=== PATIENT | male | born 1950 | race Caucasian/White ===

== ENCOUNTER 2021-11-09 15:05 | Emergency (ER) | payer MEDICARE ==
[2021-11-09] VITALS (14 sets, daily range): BP systolic 125–180; BP diastolic 70–112
[~2021-11-09] VITALS: Ht 165.1 cm; Wt 63.6 kg
[2021-11-09 16:09] LABS: HEMATOCRIT 43.8 % (39.0-50.0); HEMOGLOBIN 14.2 g/dl (14.0-18.0); IMMATURE GRANULOCYTES 0.7 % (0.0-5.0); MEAN CELL VOLUME 94.8 fL CALC (80.0-100.0); MEAN CORPUSCULAR HGB 30.7 pG CALC (26.0-32.0); MEAN CORPUSCULAR HGB CONC 32.4 g/dL CAL (32.0-36.0); NEUT# 4.69 thou/uL (1.82-7.42); RED BLOOD COUNT 4.62 mill/uL (4.70-6.10); RED CELL DISTRI WIDTH 12.4 % (11.5-15.5)
[2021-11-09 16:15] LABS: ALBUMIN 4.3 g/dL (3.2-5.0); ALKALINE PHOSPHATASE 94 u/l (38-126); ANION GAP 12 (6-22 (CALC)); BILIRUBIN, TOTAL 0.6 mg/dL (0.0-1.4); BUN 8 mg/dL (8-23); BUN/CREATININE RATIO 14 (12-20 (CALC)); CARBON DIOXIDE 25 mmol/l (22-30); CHLORIDE 106 mmol/l (95-108); CREATININE 0.6 mg/dL (0.7-1.3); GFR > 60 ML/MIN (>=60 (CALC)); GFR FOR AFR.AMER. > 60 ML/MIN (>=60 (CALC)); POTASSIUM 3.8 mmol/l (3.5-5.1); SGOT/AST 31 u/l (19-48); SODIUM 139 mmol/l (137-146); TOTAL PROTEIN 7.8 g/dL (6.3-8.2)
== END 2021-11-09 22:30 | disposition short-term general hospital (02) ==
LOC: ED 15:05
PROVIDERS: Family Medicine
PROC: 0HQ0XZZ Repair Scalp Skin, External Approach (ICD-10-PCS; principal; 2021-11-09)
DX: S06.5X0A Traumatic subdural hemorrhage without loss of consciousness, initial encounter (principal); S01.01XA Laceration without foreign body of scalp, initial encounter; I10 Essential (primary) hypertension; W18.30XA Fall on same level, unspecified, initial encounter; Y92.009 Unspecified place in unspecified non-institutional (private) residence as the place of occurrence of the external cause

== ENCOUNTER 2021-11-16 08:20 | Emergency (ER) | payer MEDICARE ==
[~2021-11-16] VITALS: Ht 165.1 cm; Wt 63.6 kg
[2021-11-16 08:29] VITALS: BP 175/90
[2021-11-16 08:45] VITALS: BP 161/85
[2021-11-16 08:47] VITALS: BP 161/85
== END 2021-11-16 08:54 | disposition home or self-care (01) ==
LOC: ED 08:20
DX: S01.81XD Laceration without foreign body of other part of head, subsequent encounter (principal); X58.XXXD Exposure to other specified factors, subsequent encounter; I10 Essential (primary) hypertension

== ENCOUNTER 2022-01-10 16:58 | Observation (INO) | payer MEDICARE ==
[2022-01-10] VITALS (17 sets, daily range): BP systolic 121–162; BP diastolic 67–134
[~2022-01-10] VITALS: Ht 165.1 cm; Wt 56.5 kg
[2022-01-10 17:25] LABS: HEMATOCRIT 38.7 % (39.0-50.0); HEMOGLOBIN 12.6 g/dl (14.0-18.0); IMMATURE GRANULOCYTES 0.4 % (0.0-5.0); MEAN CELL VOLUME 91.9 fL CALC (80.0-100.0); MEAN CORPUSCULAR HGB 29.9 pG CALC (26.0-32.0); MEAN CORPUSCULAR HGB CONC 32.6 g/dL CAL (32.0-36.0); NEUT# 1.16 thou/uL (1.82-7.42); RED BLOOD COUNT 4.21 mill/uL (4.70-6.10); RED CELL DISTRI WIDTH 12.8 % (11.5-15.5)
[2022-01-10 17:54] LABS: ALBUMIN 4.1 g/dL (3.2-5.0); ALKALINE PHOSPHATASE 68 u/l (38-126); ANION GAP 13 (6-22 (CALC)); BILIRUBIN, TOTAL 0.7 mg/dL (0.0-1.4); BUN 10 mg/dL (8-23); BUN/CREATININE RATIO 16 (12-20 (CALC)); CARBON DIOXIDE 26 mmol/l (22-30); CHLORIDE 97 mmol/l (95-108); CPK 338 u/l (52-200); CREATININE 0.7 mg/dL (0.7-1.3); GFR FOR AFR.AMER. > 60 ML/MIN (>=60 (CALC)); GFR OTHER RACES > 60 ML/MIN (>=60 (CALC)); LIPASE 28 u/l (23-300); MAGNESIUM 2.2 mg/dL (1.6-2.3); POTASSIUM 4.1 mmol/l (3.5-5.1); SGOT/AST 39 u/l (19-48); SODIUM 132 mmol/l (137-146); TOTAL PROTEIN 7.5 g/dL (6.3-8.2)
[2022-01-10 18:00] LABS: ACT PARTIAL THROMBO TIME 28.4 SECONDS (20.0-32.5); INTERNATIONAL NORMALIZED RATIO 1.1 RATIO (0.7-1.3); PROTHROMBIN TIME 11.1 SECONDS (9.0-12.5)
[2022-01-10 18:23] LABS: TSH, 3RD GENERATION 1.44 uIU/mL (0.47 - 4.68)
[2022-01-10 18:32] LABS: URINE BILIRUBIN - DIPSTICK NEGATIVE (NEGATIVE); URINE BLOOD DIPSTICK SMALL (NEGATIVE); URINE COLOR YELLOW; URINE GLUCOSE - DIPSTICK NEGATIVE (NEGATIVE); URINE KETONE TRACE mg/dL (NEGATIVE); URINE LEUK ESTERASE NEGATIVE (NEGATIVE); URINE PROTEIN - DIPSTICK NEGATIVE (NEG-TRACE); URINE UROBILINOGEN - DIPSTICK 0.2 E.U./dL (0.2)
[2022-01-10 18:34] LABS: URINE NITRITE - DIPSTICK NEGATIVE (Negative)
[2022-01-10 18:41] LABS: URINE RBC 0-2 RBC/hpf (0-5)
[2022-01-11 04:04] VITALS: BP 154/71
[2022-01-11 06:04] LABS: HEMOGLOBIN 13.1 g/dl (14.0-18.0); MEAN CELL VOLUME 93.4 fL CALC (80.0-100.0); MEAN CORPUSCULAR HGB 29.8 pG CALC (26.0-32.0); RED BLOOD COUNT 4.39 mill/uL (4.70-6.10); RED CELL DISTRI WIDTH 12.7 % (11.5-15.5)
[2022-01-11 06:16] LABS: ANION GAP 13 (6-22 (CALC)); BUN 10 mg/dL (8-23); BUN/CREATININE RATIO 17 (12-20 (CALC)); CARBON DIOXIDE 26 mmol/l (22-30); CHLORIDE 105 mmol/l (95-108); CREATININE 0.6 mg/dL (0.7-1.3); GFR FOR AFR.AMER. > 60 ML/MIN (>=60 (CALC)); GFR OTHER RACES > 60 ML/MIN (>=60 (CALC)); MAGNESIUM 2.1 mg/dL (1.6-2.3); POTASSIUM 3.9 mmol/l (3.5-5.1)
[2022-01-11 06:20] VITALS: BP 151/62
[2022-01-11 06:36] LABS: SODIUM 140 mmol/l (137-146)
[2022-01-11 10:00] VITALS: BP 110/56
[2022-01-11 14:09] VITALS: BP 118/63
[2022-01-11 18:54] VITALS: BP 150/79
[2022-01-12 00:55] VITALS: BP 168/72
[2022-01-12 04:28] VITALS: BP 145/75
[2022-01-12 06:00] LABS: HEMATOCRIT 36.6 % (39.0-50.0); HEMOGLOBIN 11.9 g/dl (14.0-18.0); MEAN CELL VOLUME 93.4 fL CALC (80.0-100.0); MEAN CORPUSCULAR HGB 30.4 pG CALC (26.0-32.0); MEAN CORPUSCULAR HGB CONC 32.5 g/dL CAL (32.0-36.0); RED BLOOD COUNT 3.92 mill/uL (4.70-6.10); RED CELL DISTRI WIDTH 12.9 % (11.5-15.5)
[2022-01-12 06:12] LABS: ANION GAP 8 (6-22 (CALC)); BUN 8 mg/dL (8-23); BUN/CREATININE RATIO 19 (12-20 (CALC)); CARBON DIOXIDE 25 mmol/l (22-30); CHLORIDE 106 mmol/l (95-108); CREATININE 0.4 mg/dL (0.7-1.3); GFR FOR AFR.AMER. > 60 ML/MIN (>=60 (CALC)); GFR OTHER RACES > 60 ML/MIN (>=60 (CALC)); MAGNESIUM 1.9 mg/dL (1.6-2.3); POTASSIUM 3.3 mmol/l (3.5-5.1); SODIUM 137 mmol/l (137-146)
[2022-01-12 06:17] VITALS: BP 145/75
[2022-01-12 10:59] VITALS: BP 142/78
[2022-01-12 18:59] VITALS: BP 144/77
[2022-01-13 01:19] VITALS: BP 140/74
[2022-01-13 04:31] LABS: HEMATOCRIT 40.7 % (39.0-50.0); HEMOGLOBIN 13.2 g/dl (14.0-18.0); MEAN CELL VOLUME 91.7 fL CALC (80.0-100.0); MEAN CORPUSCULAR HGB 29.7 pG CALC (26.0-32.0); MEAN CORPUSCULAR HGB CONC 32.4 g/dL CAL (32.0-36.0); NEUT# 1.94 thou/uL (1.82-7.42); RED BLOOD COUNT 4.44 mill/uL (4.70-6.10); RED CELL DISTRI WIDTH 12.7 % (11.5-15.5)
[2022-01-13 04:43] VITALS: BP 147/73
[2022-01-13 04:49] LABS: ALBUMIN 3.4 g/dL (3.2-5.0); ALKALINE PHOSPHATASE 59 u/l (38-126); ANION GAP 12 (6-22 (CALC)); BUN 8 mg/dL (8-23); BUN/CREATININE RATIO 16 (12-20 (CALC)); CARBON DIOXIDE 25 mmol/l (22-30); CHLORIDE 103 mmol/l (95-108); CREATININE 0.5 mg/dL (0.7-1.3); GFR FOR AFR.AMER. > 60 ML/MIN (>=60 (CALC)); GFR OTHER RACES > 60 ML/MIN (>=60 (CALC)); POTASSIUM 3.8 mmol/l (3.5-5.1); SGOT/AST 35 u/l (19-48); SODIUM 136 mmol/l (137-146); TOTAL PROTEIN 6.3 g/dL (6.3-8.2)
[2022-01-13 05:06] LABS: C-REACTIVE PROTEIN 3.5 mg/dL (0-0.9)
[2022-01-13 05:09] LABS: BILIRUBIN, TOTAL 0.3 mg/dL (0.0-1.4)
[2022-01-13 06:30] VITALS: BP 138/73
[2022-01-13 10:55] VITALS: BP 136/58
== END 2022-01-13 14:01 | disposition home or self-care (01) ==
LOC: ED 16:58 → ED-I 21:09 → ED 21:35 → MS2 21:36
PROVIDERS: Internal Medicine; ADMIT Hospitalist; ATTEND Hospitalist
DX: U07.1 COVID-19 (principal); R53.1 Weakness; R25.3 Fasciculation; M54.9 Dorsalgia, unspecified; I10 Essential (primary) hypertension; D69.6 Thrombocytopenia, unspecified; M21.371 Foot drop, right foot; Z92.21 Personal history of antineoplastic chemotherapy; Z85.840 Personal history of malignant neoplasm of eye
CPT/HCPCS: Q9967

== ENCOUNTER 2022-05-13 17:14 | Observation (INO) | payer MEDICARE ==
[~2022-05-13] VITALS: Ht 165.1 cm; Wt 65.9 kg
[2022-05-13 17:47] LABS: HEMATOCRIT 42.9 % (39.0-50.0); IMMATURE GRANULOCYTES 0.2 % (0.0-5.0); MEAN CELL VOLUME 91.9 fL CALC (80.0-100.0); MEAN CORPUSCULAR HGB CONC 32.6 g/dL CAL (32.0-36.0); NEUT# 4.18 thou/uL (1.82-7.42); RED BLOOD COUNT 4.67 mill/uL (4.70-6.10); RED CELL DISTRI WIDTH 12.6 % (11.5-15.5)
[2022-05-13 17:57] LABS: ALBUMIN 4.1 g/dL (3.2-5.0); ALKALINE PHOSPHATASE 97 u/l (38-126); ANION GAP 13 (6-22 (CALC)); BUN 9 mg/dL (8-23); BUN/CREATININE RATIO 19 (12-20 (CALC)); CARBON DIOXIDE 30 mmol/l (22-30); CHLORIDE 97 mmol/l (95-108); CREATININE 0.4 mg/dL (0.7-1.3); GFR FOR AFR.AMER. > 60 ML/MIN (>=60 (CALC)); GFR OTHER RACES > 60 ML/MIN (>=60 (CALC)); POTASSIUM 4.4 mmol/l (3.5-5.1); SGOT/AST 33 u/l (19-48); SODIUM 136 mmol/l (137-146); TOTAL PROTEIN 7.9 g/dL (6.3-8.2)
--- NOTE | 2022-05-13 17:59 | NUR ---
PATIENT CAME IN TO ED WITH GENERALIZED WEAKNESS DECREASE APPETITE AND SORE IN THE BUTTOCK STATES HE LIVES WITH FRANNIE , PATIENT ALERT AND ORIENTED APPEAR FATIGUE AND WEAK
--- NOTE | 2022-05-13 18:01 | NUR ---
NORMAL SALINE 2 L STARTED ON PATIENT ORDER IS NOT CROSSING OVER TO E-MAR AND PYXIS ... BUT SALINE WERE STARTED ON PATIENT ER MADE AWARE
[2022-05-13 18:25] LABS: URINE BILIRUBIN - DIPSTICK NEGATIVE (NEGATIVE); URINE BLOOD DIPSTICK NEGATIVE (NEGATIVE); URINE COLOR YELLOW; URINE GLUCOSE - DIPSTICK NEGATIVE (NEGATIVE); URINE KETONE NEGATIVE (NEGATIVE); URINE LEUK ESTERASE NEGATIVE (NEGATIVE); URINE PROTEIN - DIPSTICK NEGATIVE (NEG-TRACE); URINE UROBILINOGEN - DIPSTICK 0.2 E.U./dL (0.2)
[2022-05-13 18:32] LABS: URINE NITRITE - DIPSTICK NEGATIVE (Negative)
--- NOTE | 2022-05-13 19:11 | NUR ---
PROVIDER AT BEDSIDE
--- NOTE | 2022-05-13 19:11 | NUR ---
PT URINATING IN URINAL, PT IN NAD
--- NOTE | 2022-05-13 22:57 | NUR ---
PT ASSIGNED TO ROOM 271
[2022-05-14] VITALS (7 sets, daily range): BP systolic 127–141; BP diastolic 53–74
--- NOTE | 2022-05-14 00:03 | NUR ---
REPORT RECEIVED FROM ED STAFF.
--- NOTE | 2022-05-14 00:37 | NUR ---
REPORT GIVEN TO RN ON MEDSURG. PT IN NAD, A&OX4,VSS, UPDATED ON PLAN OF CARE.
--- NOTE | 2022-05-14 00:42 | NUR ---
PATIENT ARRIVED ON FLOOR ACCOMPANIED BY EXTENSION SERVICE SPECIALIST IN CHARGE. ASSEMENT COMPLETED AT THIS TIME. TOTAL ASSIT FROM STRETCHER TO BED. PATIENT ALERT AND ORIENTED X3 WITH CONFUSION NEEDING CUING AT TIMES. PATIENT APPEARS TO BE UNDERWEIGHT. STAE 1 PRESSSURE SORE NOTED ON COCCYX, PATIENT STATES HE IS CONTINENT, BUT WEARS ADULT BRIEFS IN CASE.PHOTOS TAKEN AND IN CHART. NO OTHER SKIN ISSUES NOTED. NON LABRORED BREATHING, CLEAR LUNGS THROUGHOUT. NORMAL HEART RATE. PATIENT CLEANED UP AND ASSITED TO LEFT SIDE. ORITNED TO ROOM AND CALL SYSTEM. PLACED TABLE AND JEREMY LIGHT WITHIN REACH.
--- NOTE | 2022-05-14 04:00 | NUR ---
PATIENT ASSITED TO USE THE URINAL. 200 CC CLEAR YELLOW URINE NOTED.
[2022-05-14 06:23] LABS: HEMOGLOBIN 12.1 g/dl (14.0-18.0); IMMATURE GRANULOCYTES 0.3 % (0.0-5.0); MEAN CELL VOLUME 92.3 fL CALC (80.0-100.0); MEAN CORPUSCULAR HGB 30.2 pG CALC (26.0-32.0); MEAN CORPUSCULAR HGB CONC 32.7 g/dL CAL (32.0-36.0); NEUT# 1.79 thou/uL (1.82-7.42); RED BLOOD COUNT 4.01 mill/uL (4.70-6.10); RED CELL DISTRI WIDTH 12.6 % (11.5-15.5)
[2022-05-14 06:38] LABS: ALBUMIN 3.3 g/dL (3.2-5.0); ALKALINE PHOSPHATASE 86 u/l (38-126); ANION GAP 10 (6-22 (CALC)); BILIRUBIN, TOTAL 0.6 mg/dL (0.0-1.4); BUN 7 mg/dL (8-23); BUN/CREATININE RATIO 15 (12-20 (CALC)); CARBON DIOXIDE 28 mmol/l (22-30); CHLORIDE 104 mmol/l (95-108); CREATININE 0.5 mg/dL (0.7-1.3); GFR FOR AFR.AMER. > 60 ML/MIN (>=60 (CALC)); GFR OTHER RACES > 60 ML/MIN (>=60 (CALC)); MAGNESIUM 2.2 mg/dL (1.6-2.3); POTASSIUM 3.7 mmol/l (3.5-5.1); SGOT/AST 19 u/l (19-48); SODIUM 138 mmol/l (137-146)
[2022-05-14 06:39] LABS: TOTAL PROTEIN 6.2 g/dL (6.3-8.2)
[2022-05-14 11:06] LABS: C-REACTIVE PROTEIN 0.6 mg/dL (0-0.9)
--- NOTE | 2022-05-14 19:05 | NUR ---
REPORT GIVEN BY ALEXANDRE HOWE. PATIENT ALERT AND ORIENTED X 4. PATIENT SLOW TO REPOND TO QUESTION BUT IS ABLE TO ANWSER CORRECTLY. RESP EVEN AND UNLABORED. NO S/S OF DISTRESS NOTED. FALL AND SAFTEY PRECATUIONS IN PLACE. APPEARS TO HAVE WEAKNESS PRESENT. WOUND PRESENT ON SACRAL AREA, PATIENT IS ON AIR MATTERESS. 20 RAC INFUSING IV FLUIDS. PLAN OF CARE DISCUSSED. PATIENT INFORMED TO CALL WITH ANY QUESTIONS OR CONCERNS.
--- NOTE | 2022-05-14 20:02 | NUR ---
NEW BAG OF IV FLUIDS STARTED. PATIENT REQUESTING PAIN MEDICATION. NEW IV STARTED, EMS SITE REMOVED.
--- NOTE | 2022-05-14 23:38 | NUR ---
PATIENT RESTING WITH EYES CLOSED. RESP EVEN AND UNLABORED. NO S/S OF DISTRESS NOTED. FALL AND SAFTEY PRECAUTIONS IN PLACE.
--- NOTE | 2022-05-15 03:55 | NUR ---
patient resting with eyes closed. resp even and unlabored. no s/s of distress noted. fall and saftey precautions in place
[2022-05-15 04:15] VITALS: BP 130/70
[2022-05-15 05:19] LABS: HEMOGLOBIN 12.4 g/dl (14.0-18.0); MEAN CELL VOLUME 94.2 fL CALC (80.0-100.0); MEAN CORPUSCULAR HGB CONC 31.8 g/dL CAL (32.0-36.0); NEUT# 2.49 thou/uL (1.82-7.42); RED BLOOD COUNT 4.14 mill/uL (4.70-6.10); RED CELL DISTRI WIDTH 12.9 % (11.5-15.5)
[2022-05-15 06:36] VITALS: BP 146/70
[2022-05-15 07:45] VITALS: BP 146/70
--- NOTE | 2022-05-15 08:00 | NUR ---
BEDSIDE REPORT RECEIVED FROM [facility] AWAKE ALERT AND ORIENTED IN HIGH FOWLERS POSITION IN BED, NO C/O DISCOMFORT AT THIS TIME, IVF INFUSING, CALL WHATLEY IN REACH AND BED LOCKED IN LOWEST POSITION.
--- NOTE | 2022-05-15 10:56 | NUR ---
INFORMED OF SWALLOW STUDIES FOR THIS AM AND STATED UNDERSTANDING, BEING TRANSPORTED OFF UNIT AT THIS TIME VIA W/C TO PROCEDURE.
[2022-05-15 14:27] VITALS: BP 145/70
[2022-05-15 14:44] VITALS: BP 145/70
[2022-05-15 18:26] VITALS: BP 145/65
[2022-05-16] VITALS (11 sets, daily range): BP systolic 37–202; BP diastolic 14–89
--- NOTE | 2022-05-16 07:00 | NUR ---
RECIEVED REPORT. COAT AGENT CALLED TO BEDSIDE FOR PT C/O OF SOB. O2 98% ON ROOM AIR. RESPIRATORATION APPEARS SHALLOW. PT EDUCATED ON BREATHING TECHNIQUES. O2 REMAINS IN HIGH 90'S. ALL SAFTEY PRECAUTIONS ARE IN PLACE WITH CALL LIGHT IN REACH
--- NOTE | 2022-05-16 08:17 | NUR ---
PT RESTING IN SEMI FOWLERS POSITION C/O OF SOB ONCE AGAIN BUT "WORSE" VS COMPLETED, O2 78. NONREBREATHER 15L PLACED DUE TO PT BEING MOUTH BREATHING, O2 90-92%. RESPIRATIONS LABORED. RT CALLED. DR ECHEVERRIA INFORMED. ORDERS FOR ABG AND NEB TREATMENT. LUNG SOUNDS DIMINISHED POSTERIOR BUT COURSE ANTERIOR. HX OF ASPIRATIONS. #20G LW PATENT, IV HELD AT THIS TIME. AIR MATRESS, SCDS AND HEEL PROTECTORS NOTED. DRESSING TO BUTTOCKS NOTED, REDNESS NOTED. FELT CEMENTER TO REMAIN AT BEDSIDE.
--- NOTE | 2022-05-16 08:40 | NUR ---
BREATHING TREATMENT AND ABG COMPLETED. VS COMPLETED, PT REMAINS HYPERTENSIVE . O2 REMAINS 90-92% ON 15L NRB. RESPIRATIONS REMAINS LABORED. PT STATES HIS SOB IS WORSE. DR ECHEVERRIA INFORMED OF PT STATUS. SPORTS STATISTICIAN INFORMED THAT PHYSCIAN IS ON HIS WAY. SPORTS STATISTICIAN TO REMAIN AT BEDSIDE
[2022-05-16 09:24] LABS: IMMATURE GRANULOCYTES 0.1 % (0.0-5.0); MEAN CELL VOLUME 94.8 fL CALC (80.0-100.0); MEAN CORPUSCULAR HGB 29.6 pG CALC (26.0-32.0); MEAN CORPUSCULAR HGB CONC 31.2 g/dL CAL (32.0-36.0); NEUT# 6.55 thou/uL (1.82-7.42); RED BLOOD COUNT 4.97 mill/uL (4.70-6.10)
[2022-05-16 09:35] LABS: BUN 3 mg/dL (8-23); BUN/CREATININE RATIO 8 (12-20 (CALC)); CHLORIDE 107 mmol/l (95-108); CREATININE 0.4 mg/dL (0.7-1.3); GFR FOR AFR.AMER. > 60 ML/MIN (>=60 (CALC)); GFR OTHER RACES > 60 ML/MIN (>=60 (CALC)); SODIUM 139 mmol/l (137-146)
--- NOTE | 2022-05-16 09:37 | NUR ---
call placed to [phone]; phone number noted for patient, son Nikko and daughter; no answer; will continue to attempt to reach family
--- NOTE | 2022-05-16 09:38 | NUR ---
PT TRANSFERED TO ICU BED 8. REPORT GIVEN TO ALEXANDRE WILSON. ATEMPTED TO CALL DAUGHTER FERNANDO, NO ANSWER. VOICE MAIL LEFT.
[2022-05-16 09:41] LABS: ANION GAP 17 (6-22 (CALC)); CARBON DIOXIDE 20 mmol/l (22-30); POTASSIUM 4.8 mmol/l (3.5-5.1)
--- NOTE | 2022-05-16 09:44 | NUR ---
call placed to [phone]; no answer; message left to return call
[2022-05-16 09:48] LABS: HEMOGLOBIN 14.7 g/dl (14.0-18.0)
[2022-05-16 09:49] LABS: HEMATOCRIT 47.1 % (39.0-50.0)
--- NOTE | 2022-05-16 09:56 | NUR ---
call placed to [phone]; no answer; message left to return call
--- NOTE | 2022-05-16 10:00 | NUR ---
PATIENT ARRIVED TO THE UNIT, ALERT BUT DOESNT APPEAR TO BE ANSWERING QUESTIONS APPROPRIATELY. DOES FOLLOW COMMANDS, WAS ABLE TO MOVE HIS HEAD TO LOOK TOWARDS ME WHEN ASKED. UNABLE TO MOVE HIS RIGHT ARM BUT IS ABLE TO GIVE MY HAND A WEAK HAND SHAVING MACHINE OPERATOR. LEFT ARM HE MOVED, BUT WEAK HAND SHAVING MACHINE OPERATOR WELL. HE SHOOK HIS HEAD NO WHEN I ASKED IF HE CAN MOVE EITHER OF HIS LEGS. CLEAR LUNG SOUNDS, LITTLE AIR MOVEMENT, GARBLED SOUNDING NEAR THROAT. HYPOACTIVE BOWEL SOUNDS. TRACE EDEMA BILTAERAL FEET. STRONG PULSES. BREAKDOWN ON BUTTOCKS/COCCYX, MEPILEX APPLIED TO BOTTOM. BOOT HEELS ON. SCDS APPLIED. SAFETY MEASURES IN PLACE. CALL LIGHT IN REACH . WILL CONTINUE TO MONITOR PER HOSPITAL'S POLICY. FAMILY'S NUMBER ON FILE WAS CALLED AND LEFT VOICEMAILS. WAITING GLUTEN SETTLING TENDER BACK FROM FAMILY.
--- NOTE | 2022-05-16 10:13 | NUR ---
return call received from Margy Lynne; phone passed to Dr Park
--- NOTE | 2022-05-16 10:57 | NUR ---
Dr Park present at bedside to speak with family
--- NOTE | 2022-05-16 11:20 | NUR ---
DR. ECHEVERRIA AT BEDSIDE TALKING TO "MARTIN" THE DAUHTER IN LAW, HER "JAKUB" (SON OF PATIENT), AND DAUGHTER IN LAW'S FRIEND "REHAN", ABOUT THE PATIENT'S FUTURE CARE PLAN.
--- NOTE | 2022-05-16 11:30 | NUR ---
PATIENT'S FAMILY DECIDED TO MAKE HIM DNR/ COMFORT MEASURES ONLY. DR. ECHEVERRIA VERBALLY CONFIRMED.
--- NOTE | 2022-05-16 12:00 | NUR ---
PATIENT'S FAMILY AT BEDSIDE, PATIENTS' VITALS SETADILY DECREASING.
--- NOTE | 2022-05-16 14:02 | NUR ---
TIME OF : 1401, FAMILY AT BEDSIDE. ANOTHER NURSE, FREDDY, AND I VERIFIED NO HEARTBEAT.
--- NOTE | 2022-05-16 14:18 | NUR ---
[facility] called per press writer; information provided to [place]; referral number [id number]; released from tissue donation, awaiting eye bank return call
--- NOTE | 2022-05-16 14:37 | NUR ---
CALLED [facility], NO ANSWER, LEFT A VOICEMAIL.
--- NOTE | 2022-05-16 15:02 | NUR ---
[facility], released
--- NOTE | 2022-05-16 15:12 | NUR ---
CALLED [facility] AGA[facility], SPOKE WITH A LADY STATING SHE WILL HAVE THE DIRECTOR GIVE US A CALL BACK ON ETA OF PICKUP.
--- NOTE | 2022-05-16 16:55 | NUR ---
[facility] REPRESTING [facility], PICKED UP THE BODY OF THE PATIENT.
--- NOTE | 2022-05-16 16:56 | NUR ---
CALLED THE PATIENT'S SON JAKUB ABOUT THE BODY SQUARE CUTTER.
== END 2022-05-16 17:07 | disposition expired ==
LOC: ED 17:14 → ED-I 21:39 → ED 22:03 → MS2 22:07 → ICU 05-16 09:40
PROVIDERS: Emergency Medicine; Internal Medicine; ADMIT Internal Medicine; ATTEND Internal Medicine
DX: R62.7 Adult failure to thrive (principal); J96.00 Acute respiratory failure, unspecified whether with hypoxia or hypercapnia; R53.1 Weakness; I10 Essential (primary) hypertension; L89.151 Pressure ulcer of sacral region, stage 1; R64 Cachexia; I67.82 Cerebral ischemia; D69.6 Thrombocytopenia, unspecified; I69.351 Hemiplegia and hemiparesis following cerebral infarction affecting right dominant side; I69.322 Dysarthria following cerebral infarction; I25.10 Atherosclerotic heart disease of native coronary artery without angina pectoris; M53.9 Dorsopathy, unspecified; R63.0 Anorexia; F17.220 Nicotine dependence, chewing tobacco, uncomplicated; T17.928A Food in respiratory tract, part unspecified causing other injury, initial encounter; X58.XXXA Exposure to other specified factors, initial encounter; Z51.5 Encounter for palliative care; Z66 Do not resuscitate; Z74.2 Need for assistance at home and no other household member able to render care; Z68.24 Body mass index [BMI] 24.0-24.9, adult; Z95.5 Presence of coronary angioplasty implant and graft; Z99.3 Dependence on wheelchair; Z86.16 Personal history of COVID-19; Z20.822 Contact with and (suspected) exposure to COVID-19
CPT/HCPCS: J2060; Q9967; S0164